=== PATIENT | female | born 1970 | race Caucasian/White ===

== ENCOUNTER 2025-03-23 09:08 | Outpatient (CLI) | payer BC, SELFPAY ==
--- NOTE | ~2025-03-23 | US_ITS ---
ULTRASOUND ABDOMEN LIMITED (RIGHT UPPER QUADRANT) Clinical History: Fatty liver Comparison: None Technique: Right upper quadrant sonography Findings: Liver: Normal size. Echogenic. No intrahepatic biliary ductal dilatation. Nodular contour. Normal hepatopedal flow main portal vein. Focal fatty sparing near gallbladder fossa. Common Duct: Normal caliber. 4 mm. Gallbladder: Removed. Pancreas: Largely obscured by bowel gas. Right kidney: Unremarkable. Retrohepatic IVC: Unremarkable. IMPRESSION: 1. Hepatic steatosis and/or diffuse hepatocellular disease. Minimal cirrhosis not excluded. 2. Otherwise no acute abnormality. Reviewed, dictated and finalized at location R.
== END 2025-03-23 09:09 | disposition home or self-care (01) ==
LOC: MICIMG 09:14
PROVIDERS: PCP Chiropractor; Visit Provider Chiropractor
DX: K76.0 Fatty (change of) liver, not elsewhere classified (principal)
CPT/HCPCS: 76705